=== PATIENT | female | born 1940 | race Caucasian/White ===

== ENCOUNTER 2016-11-13 19:20 | Observation (INO) | payer MEDICARE, OTHER ==
[~2016-11-13] VITALS: Ht 165.1 cm; Wt 65.0 kg
[~2016-11-13 19:20] MED LIST: AMBI10TA PO; CALC500T19 PO; CHLO500T13 PO; FIORINAL2 PO; METHY500 PO; MEVA40TA PO; SALS500T PO; TAB-TAB PO
[2016-11-13 19:25] VITALS: BP 147/67; PULSE 80; RESP 16; TEMP 98.2; O2SAT 94
--- NOTE | 2016-11-13 19:57 | PD ---
HPI Chief Complaint: Fall Time Seen by Provider: 19:52 Travel History International Travel<30 days: No Contact w/Intl Traveler<30days: No Traveled to known affect area: No History of Present Illness HPI Patient is 75-year-old female presenting to emergency Department via EMS for evaluation of right ankle pain. Patient tripped and fell down 5-6 steps in her home. She reports laying there for approximately 15 minutes to make sure that "everything was working". She managed to climb the stairs herself but has been unable to bear weight on her right ankle. She reports a chronic history of back pain related to scoliosis and arthritis however it is exacerbated since the accident. She also reports right knee pain. She denies any head injury or loss of consciousness. She states her pain is an 8 out of 10. She states that she's had left knee pain for the last year which is cause her to be mostly bedridden, she is finally been able to get around as of recently and then fell. When she fell she was kicking a bag of laundry down the stairs stating she misjudged the steps and fell. PFSH Past Medical History Arthritis: Yes High Cholesterol: Yes COPD: Yes Hypertension: Yes Immunizations Current: Yes Tetanus Vaccination: Never Vaccinated Influenza Vaccination: No Menopausal: Yes Past Surgical History Gynecologic Surgery: Yes (bilateral oophorectomy) Tonsillectomy: Yes Other Surgery: Yes (BILATERAL BREAST BIOPSY) Social History Alcohol Use: Yes (OCCASIONALLY) Tobacco Use: Yes (1PPD ) Substance Use: No Allergies-Medications (Allergen,Severity, Reaction): Coded Allergies: Codeine (Verified Allergy, Intermediate, Nausea/Vomiting, 11/13/16) Reported Meds & Prescriptions Reported Meds & Active Scripts Active Reported Lovastatin 40 Mg Tab 40 Mg PO DAILY Fluoxetine (Fluoxetine HCl) 20 Mg Cap 20 Mg PO DAILY Ambien (Zolpidem Tartrate) 10 Mg Tab 10 Mg PO HS PRN Clonazepam 0.5 Mg Tab 0.5 Mg PO QID Methyldopa 500 Mg Tab 500 Mg PO BID Review of Systems Except as stated in HPI: all other systems reviewed are Neg General / Constitutional: No: Fever, Chills Eyes: No: Visual changes HENT: No: Headaches, Neck Stiffness, Neck Pain Cardiovascular: No: Chest Pain or Discomfort, Tachycardia, Dyspnea on exertion Respiratory: No: Shortness of Breath, Wheezing Gastrointestinal: No: Nausea, Vomiting, Abdominal Pain Genitourinary: No: Dysuria Musculoskeletal: Positive: Myalgias, Arthralgias, Edema, Pain Skin: Positive Change in Pigmentation Neurologic: No: Dizziness, Focal Abnormalities, Change in Mentation Physical Exam Narrative GENERAL: Well-developed, well-nourished, alert elderly female. Resting comfortably in no acute distress. SKIN: Warm and dry. HEAD: Atraumatic. Normocephalic. EYES: Pupils equal and round. No scleral icterus. No injection or drainage. ENT: No nasal bleeding or discharge. Mucous membranes pink and moist. NECK: Trachea midline. No JVD. Full range of motion with flexion, extension, rotation. CARDIOVASCULAR: Regular rate and rhythm. No murmur appreciated. RESPIRATORY: No accessory muscle use. Clear to auscultation. Breath sounds equal bilaterally. GASTROINTESTINAL: Abdomen soft, non-tender, nondistended. Hepatic and splenic margins not palpable. The bowel sounds, no rebound, no guarding. MUSCULOSKELETAL: No clubbing. No cyanosis. Edema to the right ankle on the lateral aspect, and on the lateral aspect of the right lower leg with associated ecchymosis. Positive pedal pulses, brisk less than 3 second capillary refill. NEUROLOGICAL: Awake and alert. No obvious cranial nerve deficits. Motor grossly within normal limits. Normal speech. PSYCHIATRIC: Appropriate mood and affect; insight and judgment normal. Data Data Last Documented VS Vital Signs Date Time Temp Pulse Resp B/P Pulse Ox O2 Delivery O2 Flow Rate FiO2 11/13/16 19:59 16 95 Nasal Cannula 2 11/13/16 19:25 98.2 80 147/[address] Brain W/O Iv Contrast(Rout) (11/13/16 ) Ct Cerv Spine W/O Contrast (11/13/16 ) Chest, Pa & Lat (11/13/16 ) Ankle, Complete ([id number]) (11/13/16 ) Knee, Complete (4vws) (11/13/16 ) Spine, Lumbar - Ltd (Ap & Lat) (11/13/16 ) Complete Blood Count With Diff (11/13/16 19:46) Comprehensive Metabolic Panel (11/13/16 19:46) Act Partial Throm Time (Ptt) (11/13/16 19:46) Prothrombin Time / Inr (Pt) (11/13/16 19:46) Iv Access Insert/Monitor (11/13/16 19:46) Oximetry (11/13/16 19:46) Ecg Monitoring (11/13/16 19:46) Ondansetron Inj (Zofran Inj) (11/13/16 20:00) Morphine Inj (Morphine Inj) (11/13/16 20:15) Knee, Complete (4vws) (11/13/16 ) Splinting (11/13/16 ) MDM Medical Decision Making Medical Screen Exam Complete: Yes Emergency Medical Condition: Yes Interpretation(s) Vital Signs Date Time Temp Pulse Resp B/P Pulse Ox O2 Delivery O2 Flow Rate FiO2 11/13/16 19:59 16 95 Nasal Cannula 2 11/13/16 19:25 98.2 80 16 147/67 94 Last Impressions Lumbar Spine X-Ray 11/13/16 0000 Signed Impressions: Service Date/Time: Sunday, November 13, 2016 20:20 - CONCLUSION: 1. Mild superior endplate depression of L4 of uncertain age. No spondylolisthesis. Steve Aguilar MD Head CT 11/13/16 0000 Signed Impressions: Service Date/Time: Sunday, November 13, 2016 20:36 - CONCLUSION: 1. White matter ischemic changes. Cortical volume loss. No acute intracranial abnormalities. Steve Aguilar MD Chest X-Ray 11/13/16 0000 Signed Impressions: Service Date/Time: Sunday, November 13, 2016 20:08 - CONCLUSION: 1. No acute findings. Steve Aguilar MD Cervical Spine CT 11/13/16 0000 Signed Impressions: Service Date/Time: Sunday, November 13, 2016 20:36 - CONCLUSION: 1. No acute findings. Moderate degenerative change. Osteopenia. Steve Aguilar MD Ankle X-Ray 11/13/16 0000 Signed Impressions: Service Date/Time: Sunday, November 13, 2016 19:59 - CONCLUSION: 1. Mildly displaced fracture of the lateral malleolus with soft tissue swelling. Steve Aguilar MD Vital Signs Date Time Temp Pulse Resp B/P Pulse Ox O2 Delivery O2 Flow Rate FiO2 11/13/16 19:25 98.2 80 16 147/67 94 Differential Diagnosis Sprain versus strain versus fracture versus dislocation versus contusion versus hemorrhage versus other Narrative Course Patient is a 75-year-old female presenting to emergency Department for evaluation of right ankle pain after falling down 5-6 steps in her home. Patient is neurologically intact. Labs and imaging ordered and pending. IV access initiated, patient placed on telemetry monitoring and continuous pulse oximetry. CT scan of the head is negative for acute abnormality CT scan of the cervical spine was negative for fracture X-ray of the lumbar spine shows mild superior endplate depression at L4 of an uncertain age. Chest x-ray is negative X-ray of the right ankle shows a lateral malleolus fracture soft tissue swelling. Patient will be placed in Luna splint. Patient's left knee is weak secondary to a possible tear per her report, it injured for approximately one year, and now her right ankle has a fracture. Patient would be best placed under observation for possible placement in short- term rehabilitation. Discussed with patient, she was originally requesting home health, she has agreed to stay for physical therapy and possible short- term rehabilitation placement. Labs are still pending. Dr. Chairez except admission under observation. Diagnosis Primary Impression: Closed right ankle fracture Qualified Code: S82.891A - Closed right ankle fracture, initial encounter Additional Impressions: Fall (on) (from) other stairs and steps, initial encounter Impaired functional mobility, balance, gait, and endurance Carol Coleman Nov 13, 2016 19:57
[2016-11-13 19:59] VITALS: RESP 16; O2SAT 95
[2016-11-13] MEDS ORDERED: ONDANSETRON HCL 4 MG/2 ML VIAL IV PUSH ONE (20:00)
[2016-11-13] MEDS ORDERED: METH500T PO (20:03)
[2016-11-13] MEDS ORDERED: LOVA40TA PO (20:03)
[2016-11-13] MEDS ORDERED: FLUO20CA4 PO (20:03)
[2016-11-13] MEDS ORDERED: AMBI10TA PO (20:03)
[2016-11-13] MEDS ORDERED: CLON0.5T PO (20:03)
[2016-11-13] MEDS ORDERED: MORPHINE SULFATE 4 MG/ML INJ IV PUSH ONE (20:15)
--- NOTE | 2016-11-13 20:46 | RADRPT ---
EXAM DATE/TIME: 11/13/2016 20:36 [facility] COMPARISON: No previous studies available for comparison. INDICATIONS : Trauma; fall. RADIATION DOSE: 32.66 CTDIvol (mGy) MEDICAL HISTORY : Hypertension. Chronic obstructive pulmonary disease. SURGICAL HISTORY : Tubal ligation. Tonsillectomy. ENCOUNTER: Initial ACUITY: 1 day PAIN SCALE: 2/10 LOCATION: cranial TECHNIQUE: Multiple contiguous axial images were obtained of the head. Using automated exposure control and adj ustment of the mA and/or kV according to patient size, radiation dose was kept as low as reasonably a chievable to obtain optimal diagnostic quality images. FINDINGS: CEREBRUM: The ventricles are normal for age. No evidence of midline shift, mass lesion, hemorrhage or acute in farction. No extra-axial fluid collections are seen. POSTERIOR FOSSA: The cerebellum and brainstem are intact. The 4th ventricle is midline. The cerebellopontine angle i s unremarkable. EXTRACRANIAL: The visualized portion of the orbits is intact. SKULL: The calvaria is intact. No evidence of skull fracture. CONCLUSION: 1. White matter ischemic changes. Cortical volume loss. No acute intracranial abnormalities. Steve Aguilar MD on November 13, 2016 at 20:43 Board Certified Radiologist. This report was verified electronically.
--- NOTE | 2016-11-13 20:47 | RADRPT ---
EXAM DATE/TIME: 11/13/2016 19:59 [facility] COMPARISON: No previous studies available for comparison. INDICATIONS : Right ankle pain after fall. MEDICAL HISTORY : None. SURGICAL HISTORY : None. ENCOUNTER: Initial ACUITY: 1 day PAIN SCORE: 8/10 LOCATION: Right ankle. FINDINGS: Three view exam was performed of the right ankle. There is a minimally displaced fracture lateral ma lleolus. Overlying soft tissue swelling. No dislocation. CONCLUSION: 1. Mildly displaced fracture of the lateral malleolus with soft tissue swelling. Steve Aguilar MD on November 13, 2016 at 20:45 Board Certified Radiologist. This report was verified electronically.
--- NOTE | 2016-11-13 20:48 | RADRPT ---
EXAM DATE/TIME: 11/13/2016 20:08 [facility] COMPARISON: No previous studies available for comparison. INDICATIONS : Chest and back pain after fall today. MEDICAL HISTORY : Hypertension. Hypercholesterolemia. Chronic obstructive pulmonary disease. Smoker. SURGICAL HISTORY : None. ENCOUNTER: Initial ACUITY: 1 day PAIN SCORE: 5/10 LOCATION: Bilateral chest FINDINGS: PA and lateral views of the chest demonstrate the lungs to be symmetrically aerated without evidence of mass, infiltrate or effusion. The cardiomediastinal contours are unremarkable. Osseous structure s are intact. CONCLUSION: 1. No acute findings. Steve Aguilar MD on November 13, 2016 at 20:46 Board Certified Radiologist. This report was verified electronically.
--- NOTE | 2016-11-13 20:50 | RADRPT ---
EXAM DATE/TIME: 11/13/2016 20:20 [facility] COMPARISON: No previous studies available for comparison. INDICATIONS : Lower back pain after fall. MEDICAL HISTORY : None. SURGICAL HISTORY : None. ENCOUNTER: Initial ACUITY: 1 day PAIN SCORE: 8/10 LOCATION: Bilateral lower back. FINDINGS: There is a mild superior endplate depression at L4 Limited age. No evidence for retropulsion. No subl uxation. Bones are osteopenic. Moderate degenerative disc disease and facet arthropathy. CONCLUSION: 1. Mild superior endplate depression of L4 of uncertain age. No spondylolisthesis. Steve Aguilar MD on November 13, 2016 at 20:47 Board Certified Radiologist. This report was verified electronically.
--- NOTE | 2016-11-13 20:56 | RADRPT ---
EXAM DATE/TIME: 11/13/2016 20:36 [facility] COMPARISON: No previous studies available for comparison. INDICATIONS : Trauma; fall. RADIATION DOSE: 21.06 CTDIvol (mGy) MEDICAL HISTORY : Hypertension. Chronic obstructive pulmonary disease. SURGICAL HISTORY : Tonsillectomy. Tubal ligation. ENCOUNTER: Initial ACUITY: 1 day PAIN SCALE: 2/10 LOCATION: neck TECHNIQUE: Volumetric scanning of the cervical spine was performed. Multiplanar reconstructions in the sagittal, coronal and oblique axial planes were performed. Using automated exposure control and adjustment o f the mA and/or kV according to patient size, radiation dose was kept as low as reasonably achievable to obtain optimal diagnostic quality images. FINDINGS: There is moderate degenerative disc disease in the cervical spine. No fracture or spondylolisthesis. No prevertebral soft tissue swelling. The bones are osteopenic. CONCLUSION: 1. No acute findings. Moderate degenerative change. Osteopenia. Steve Aguilar MD on November 13, 2016 at 20:51 Board Certified Radiologist. This report was verified electronically.
--- NOTE | 2016-11-13 21:01 | RADRPT ---
EXAM DATE/TIME: 11/13/2016 20:04 [facility] COMPARISON: No previous studies available for comparison. INDICATIONS : Right knee pain after fall. MEDICAL HISTORY : None. SURGICAL HISTORY : None. ENCOUNTER: Initial ACUITY: 1 day PAIN SCORE: 5/10 LOCATION: Right knee. FINDINGS: Four view examination of the right knee demonstrates no evidence of fracture or dislocation. Mild ost eopenia. Mild osteoarthritis at the knee joint. CONCLUSION: 1. Mild osteoarthritis. Osteopenia. No acute bony abnormality. Steve Aguilar MD on November 13, 2016 at 20:58 Board Certified Radiologist. This report was verified electronically.
--- NOTE | 2016-11-13 21:02 | RADRPT ---
EXAM DATE/TIME: 11/13/2016 20:04 [facility] COMPARISON: No previous studies available for comparison. INDICATIONS : Left knee pain after fall. MEDICAL HISTORY : None. SURGICAL HISTORY : None. ENCOUNTER: Initial ACUITY: 1 day PAIN SCORE: 5/10 LOCATION: Left knee. FINDINGS: Four view examination of the left knee demonstrates no evidence of fracture or dislocation. Bone mine ralization is decreased. Moderate osteoarthritis at the knee joint. CONCLUSION: 1. Moderate osteoarthritis at the left knee. No acute bony abnormalities. Steve Aguilar MD on November 13, 2016 at 20:59 Board Certified Radiologist. This report was verified electronically.
[2016-11-13] MEDS ORDERED: SODIUM CHLORIDE 0.9% FLUSH 5 ML FLUSH FLUSH PRN (21:45)
[2016-11-13] MEDS ORDERED: ONDANSETRON HCL 4 MG/2 ML VIAL IVP PRN (21:45)
[2016-11-13] MEDS ORDERED: NALOXONE HCL 0.4 MG/ML AMP IV PRN (21:45)
[2016-11-13] MEDS ORDERED: MORPHINE SULFATE 4 MG/ML INJ IV PUSH PRN (22:00)
[2016-11-13 22:22] LABS: BASOPHIL # 0.1 TH/MM3 (0-0.2); BASOPHIL % 0.3 % (0.0-2.0); EOSINOPHIL # 0.1 TH/MM3 (0-0.4); EOSINOPHIL % 0.7 % (0.0-4.0); HEMATOCRIT 44.8 % (35.0-46.0); HEMO FLAGS DIFF FINAL; LYMPH % 7.4 % (9.0-44.0); LYMPHOCYTE # 1.3 TH/MM3 (1.0-4.8); MEAN CELL VOLUME 91.5 FL (80.0-100.0); MEAN CORPUSCULAR HGB CONC 33.9 % (32.0-36.0); MONO % 9.1 % (0.0-8.0); NEUT % 82.5 % (16.0-70.0); PLATELET COUNT 237 TH/MM3 (150-450); RED BLOOD COUNT 4.89 MIL/MM3 (4.00-5.30); RED CELL DISTRIBUTION WIDTH 12.6 % (11.6-17.2); WHITE BLOOD COUNT 16.9 TH/MM3 (4.0-11.0)
[2016-11-13 22:34] LABS: APTT (PATIENT) 26.6 SEC (24.3-30.1); INTERNATIONAL NORMALIZED RATIO 0.9 RATIO; PROTHROMBIN TIME - PATIENT 10.2 SEC (9.8-11.6)
[2016-11-13 22:39] LABS: ANION GAP 6 MEQ/L (5-15); AST (GOT) 19 U/L (15-37); BICARBONATE 29.2 MEQ/L (21.0-32.0); BLOOD UREA NITROGEN 13 MG/DL (7-18); CHLORIDE 102 MEQ/L (98-107); GLOMERULAR FILTRATION RATE 66 ML/MIN (>89); POTASSIUM 3.4 MEQ/L (3.5-5.1); SODIUM (NA) 137 MEQ/L (136-145)
[2016-11-13 22:43] LABS: ALKALINE PHOSPHATASE 90 U/L (45-117); ALT (GPT) 22 U/L (10-53); TOTAL BILIRUBIN ADULT 0.4 MG/DL (0.2-1.0)
[2016-11-13 23:12] VITALS: BP 139/63; PULSE 83; RESP 20; TEMP 98; O2SAT 95
[2016-11-13] MEDS ORDERED: ASPIRIN 325 MG/CAFFEINE 40 MG/BUTALBITAL 50 MG CAP PO ONE (23:45)
--- NOTE | 2016-11-13 23:57 | HHI.HP ---
[facility] Non-Staff Admission Diagnosis right ankle fracture, fall, gait impairment Diagnoses: Chief Complaint: Fell down Travel History International Travel<30 Days: No Contact w/Intl Traveler <30 Da: No Traveled to Known Affected Are: No History of Present Illness History from patient, your physician communication, and review of medical records. Patient reported that she was trying to do her laundry and coming down steps of stairs in her home and somehow lost balance and fell onto her right side. She stated that her left knee is that that knee for which she has been seeing Dr. Muñoz and pretty much have been mostly bedbound or homebound because of this left knee. She states that she is not able to tolerate any opiate medications and therefore she is mainly doing physical therapy at home by herself without much pain medications. She is quite upset that she now injured her right ankle as well. She however denies any premonitory symptoms prior to this fall such as chest pain/palpitations/shortness of breath/focal weakness. Patient denies hitting her head. Denies being on blood thinners at home. Denies syncope. Patient also denies any recent fever/nausea/vomiting/diarrhea/urinary burning or pain on urination. Denies any hematemesis/hematochezia/melena/hematuria. Review of Systems 12 point review of systems was obtained and is negative apart from what is mentioned in HPI Past Family Social History Past Medical History Hypertension Prior history of tobacco abusequit 3 years ago. Chronic back painsecondary to fracture at the spine per patient. Chronic left knee pain for past one yearpatient doesn't know the exact etiology. However states physical therapy at home was improving the pain. Past Surgical History Bilateral breast biopsy Bilateral oophorectomy Reported Medications Patient's medications listed in EMRreviewed. Patient stated that she did go through all her medications with the nurse. Allergies: Coded Allergies: Codeine (Verified Allergy, Intermediate, Nausea/Vomiting, 11/13/16) Family History Reports for further had type 1 diabetes and at the age of [age] years old. Her mother had breast cancer and from it. Social History Denies smoking/alcohol abuse/drug abuse. Used to smoke cigarettes and quit about 3 years ago. Lives by herself. Still driving. Physical Exam Vital Signs Vital Signs Date Time Temp Pulse Resp B/P Pulse Ox O2 Delivery O2 Flow Rate FiO2 11/13/16 23:12 98.0 83 20 139/63 95 11/13/16 19:59 16 95 Nasal Cannula 2 11/13/16 19:25 98.2 80 16 147/67 94 Physical Exam GENERAL: This is a well-nourished, well-developed patient, in no apparent distress. SKIN: No rashes, ecchymoses or lesions. Cool and dry. HEAD: Atraumatic. Normocephalic. No temporal or scalp tenderness. EYES: . No scleral icterus. No injection or drainage. ENT: Nose without bleeding, purulent drainage or septal hematoma. Airway patent. NECK: Trachea midline. No JVD Supple, nontender, no meningeal signs. CARDIOVASCULAR: Regular rate and rhythm without murmurs, gallops, or rubs. RESPIRATORY: Clear to auscultation. Breath sounds equal bilaterally. No wheezes , rales, or rhonchi. GASTROINTESTINAL: Abdomen soft, non-tender, nondistended.. No guarding. MUSCULOSKELETAL: Extremities without clubbing, cyanosis, or edema. Right lower extremity in cast. Able to wiggle her toes. Denies numbness or loss of sensation. NEUROLOGICAL: Awake and alert. Normal speech. Laboratory Laboratory Tests Test 11/13/16 21:45 White Blood Count 16.9 Red Blood Count 4.89 Hemoglobin 15.2 Hematocrit 44.8 Mean Corpuscular Volume 91.5 Mean Corpuscular Hemoglobin 31.0 Mean Corpuscular Hemoglobin 33.9 Concent Red Cell Distribution Width 12.6 Platelet Count 237 Mean Platelet Volume 7.6 Neutrophils (%) (Auto) 82.5 Lymphocytes (%) (Auto) 7.4 Monocytes (%) (Auto) 9.1 Eosinophils (%) (Auto) 0.7 Basophils (%) (Auto) 0.3 Neutrophils # (Auto) 14.0 Lymphocytes # (Auto) 1.3 Monocytes # (Auto) 1.5 Eosinophils # (Auto) 0.1 Basophils # (Auto) 0.1 CBC Comment DIFF FINAL Differential Comment Prothrombin Time 10.2 Prothromb Time International 0.9 Ratio Activated Partial 26.6 Thromboplast Time Sodium Level 137 Potassium Level 3.4 Chloride Level 102 Carbon Dioxide Level 29.2 Anion Gap 6 Blood Urea Nitrogen 13 Creatinine 0.84 Estimat Glomerular Filtration 66 Rate Random Glucose 103 Calcium Level 9.0 Total Bilirubin 0.4 Aspartate Amino Transf 19 (AST/SGOT) Alanine Aminotransferase 22 (ALT/SGPT) Alkaline Phosphatase 90 Total Protein 7.0 Albumin 3.6 Result Diagram: 11/13/16214411/13/162144 Imaging Last 48 hours Impressions Lumbar Spine X-Ray 11/13/16 0000 Signed Impressions: Service Date/Time: Sunday, November 13, 2016 20:20 - CONCLUSION: 1. Mild superior endplate depression of L4 of uncertain age. No spondylolisthesis. Steve Aguilar MD Knee X-Ray 11/13/16 0000 Signed Impressions: Service Date/Time: Sunday, November 13, 2016 20:04 - CONCLUSION: 1. Moderate osteoarthritis at the left knee. No acute bony abnormalities. Steve Aguilar MD Knee X-Ray 11/13/16 0000 Signed Impressions: Service Date/Time: Sunday, November 13, 2016 20:04 - CONCLUSION: 1. Mild osteoarthritis. Osteopenia. No acute bony abnormality. Steve Aguilar MD Head CT 11/13/16 0000 Signed Impressions: Service Date/Time: Sunday, November 13, 2016 20:36 - CONCLUSION: 1. White matter ischemic changes. Cortical volume loss. No acute intracranial abnormalities. Steve Aguilar MD Chest X-Ray 11/13/16 0000 Signed Impressions: Service Date/Time: Sunday, November 13, 2016 20:08 - CONCLUSION: 1. No acute findings. Steve Aguilar MD Cervical Spine CT 11/13/16 0000 Signed Impressions: Service Date/Time: Sunday, November 13, 2016 20:36 - CONCLUSION: 1. No acute findings. Moderate degenerative change. Osteopenia. Steve Aguilar MD Ankle X-Ray 11/13/16 0000 Signed Impressions: Service Date/Time: Sunday, November 13, 2016 19:59 - CONCLUSION: 1. Mildly displaced fracture of the lateral malleolus with soft tissue swelling. Steve Aguilar MD Assessment and Plan Problem List: (1) Fall (on) (from) other stairs and steps, initial encounter ICD Code: W10.8XXA Status: Acute (2) Closed right ankle fracture ICD Code: S82.891A Status: Acute (3) Impaired functional mobility, balance, gait, and endurance ICD Code: Z74.09 Status: Acute Assessment and Plan Impression: Status post fall Right lateral malleolus mildly displaced fracture Hypertension Prior history of tobacco abusequit 3 years ago. Chronic back painsecondary to fracture at the spine per patient. Chronic left knee pain for past one yearpatient doesn't know the exact etiology. However states physical therapy at home was improving the pain. Plan: Physical therapy consult. Orthopedics consult. Pain control. Patient prefers taking Fiorinal for this. She states that she gets adverse reactions to narcotics and would rather stick with what she knows. She is also requesting prescription for Purinol at discharge. I have told her that we would prescribe her and that something contraindication occur during her hospitalization stay with new double up months. Otherwise she may resume. Resume rest of her home medications. DVT prophylaxiswith heparin. GI prophylaxis on pantoprazole. Discussed Condition With patient, ER Problem Qualifiers (1) Closed right ankle fracture: Qualified Code: S82.891A - Closed right ankle fracture, initial encounter Lucero Chairez MD Nov 13, 2016 23:57
[2016-11-14] MEDS ORDERED: ZOLPIDEM TARTRATE 10 MG TAB PO PRN (00:45)
[2016-11-14] MEDS ORDERED: PRAVASTATIN SOD 40 MG TAB PO ONE (00:45)
[2016-11-14] MEDS ORDERED: METHYLDOPA 500 MG TAB PO ONE (00:45)
[2016-11-14 03:49] VITALS: BP 109/67; PULSE 85; RESP 20; TEMP 97.6; O2SAT 95
[2016-11-14] MEDS ORDERED: ASPIRIN 325 MG/CAFFEINE 40 MG/BUTALBITAL 50 MG CAP PO PRN (06:45)
[2016-11-14 07:56] VITALS: BP 128/56; PULSE 80; RESP 20; TEMP 97.9; O2SAT 92
[2016-11-14] MEDS ORDERED: HEPARIN SODIUM - SQ 10,000 UNITS/ML VIAL SQ SCH (09:00)
[2016-11-14] MEDS ORDERED: clonazePAM 0.5 MG TAB PO SCH (09:00)
[2016-11-14] MEDS ORDERED: METHYLDOPA 500 MG TAB PO SCH (09:00)
[2016-11-14] MEDS ORDERED: PRAVASTATIN SOD 40 MG TAB PO SCH (09:00)
[2016-11-14] MEDS ORDERED: FLUoxetine HCL 20 MG CAP PO SCH (09:00)
[2016-11-14] MEDS ORDERED: SODIUM CHLORIDE 0.9% FLUSH 5 ML FLUSH FLUSH SCH (09:00)
[2016-11-14] MEDS ORDERED: PANTOPRAZOLE SOD 40 MG DELAYED RELEASE TAB PO SCH (09:00)
--- NOTE | 2016-11-14 09:26 | HHI.PR ---
Subjective Remarks Follow up for right ankle fracture, lumbar compression fracture. The patient adamantly wants to go home today. Pain is fairly well controlled with Fiorinal. She is requesting if she can get rehab at home. She lives by herself however she has arranged for a friend to stay with her 24hrs/day until Tuesday. She would like a wheelchair and bedside commode arranged. Discussed with case management. Discussed with Dr. Shields, ok to discharge, outpatient f/up, continue splint and NWB to RLE. Objective Vitals Vital Signs Date Time Temp Pulse Resp B/P Pulse Ox O2 Delivery O2 Flow Rate FiO2 11/14/16 07:56 97.9 80 20 128/56 92 11/14/16 03:49 97.6 85 20 109/67 95 11/13/16 23:12 98.0 83 20 139/63 95 11/13/16 19:59 16 95 Nasal Cannula 2 11/13/16 19:25 98.2 80 16 147/67 94 Result Diagram: 11/13/16214411/13/162144 Imaging Last Impressions Lumbar Spine X-Ray 11/13/16 0000 Signed Impressions: Service Date/Time: Sunday, November 13, 2016 20:20 - CONCLUSION: 1. Mild superior endplate depression of L4 of uncertain age. No spondylolisthesis. Steve Aguilar MD Knee X-Ray 11/13/16 0000 Signed Impressions: Service Date/Time: Sunday, November 13, 2016 20:04 - CONCLUSION: 1. Moderate osteoarthritis at the left knee. No acute bony abnormalities. Steve Aguilar MD Head CT 11/13/16 0000 Signed Impressions: Service Date/Time: Sunday, November 13, 2016 20:36 - CONCLUSION: 1. White matter ischemic changes. Cortical volume loss. No acute intracranial abnormalities. Steve Aguilar MD Chest X-Ray 11/13/16 0000 Signed Impressions: Service Date/Time: Sunday, November 13, 2016 20:08 - CONCLUSION: 1. No acute findings. Steve Aguilar MD Cervical Spine CT 11/13/16 0000 Signed Impressions: Service Date/Time: Sunday, November 13, 2016 20:36 - CONCLUSION: 1. No acute findings. Moderate degenerative change. Osteopenia. Steve Aguilar MD Ankle X-Ray 11/13/16 0000 Signed Impressions: Service Date/Time: Sunday, November 13, 2016 19:59 - CONCLUSION: 1. Mildly displaced fracture of the lateral malleolus with soft tissue swelling. Steve Aguilar MD Objective Remarks GENERAL: Well-nourished, well-developed elderly female patient in NAD. SKIN: Warm and dry. No rash. HEAD: Normocephalic. Atraumatic. EYES: Pupils equal and round. No scleral icterus. No injection or drainage. ENT: No nasal bleeding or discharge. Mucous membranes pink and moist. NECK: Supple. Trachea midline. CARDIOVASCULAR: Regular rate and rhythm. S1, S2 noted. No murmur appreciated. RESPIRATORY: No accessory muscle use. Clear to auscultation. Breath sounds equal bilaterally. GASTROINTESTINAL: Abdomen soft, non-tender, nondistended. Normoactive bowel sounds x4. MUSCULOSKELETAL: No obvious deformities. RLE in splint. NEUROLOGICAL: Awake and alert. No obvious cranial nerve deficits. Motor grossly within normal limits. Normal speech. PSYCHIATRIC: Appropriate mood and affect; insight and judgment normal. Medications and IVs Current Medications Medications (Trade) Dose Ordered Sig/Ty Route Start Time Stop Time Status Last Admin (NS Flush) 2 ml UNSCH PRN FLUSH 11/13/16 21:45 (NS Flush) 2 ml BID FLUSH 11/14/16 09:00 (Zofran Inj) 4 mg Q6H PRN IVP 11/13/16 21:45 (Heparin Inj) 5,000 units Q8H SQ 11/14/16 09:00 (Narcan Inj) 0.4 mg UNSCH PRN IV 11/13/16 21:45 (Morphine Inj) 2 mg Q3H PRN IV PUSH 11/13/16 22:00 (KlonoPIN) 0.5 mg QID PO 11/14/16 09:00 11/14/16 10:04 (PROzac) 20 mg DAILY PO 11/14/16 09:00 11/14/16 10:04 (Pravachol) 40 mg DAILY PO 11/14/16 09:00 11/14/16 10:05 (Aldomet) 500 mg BID PO 11/14/16 09:00 (Ambien) 10 mg HS PRN PO 11/14/16 00:45 11/14/16 01:40 (Fiorinal 325-40-50) 1 cap Q6HR PRN PO 11/14/16 06:45 (Protonix) 40 mg DAILY PO 11/14/16 09:00 11/14/16 10:04 A/P Problem List: (1) Fall (on) (from) other stairs and steps, initial encounter ICD Code: W10.8XXA Status: Acute (2) Closed right ankle fracture ICD Code: S82.891A Status: Acute (3) Impaired functional mobility, balance, gait, and endurance ICD Code: Z74.09 Status: Acute Assessment and Plan 75-year-old female with history of chronic left knee pain, chronic back pain secondary to old fracture, HTN, prior tobacco use, presents with right ankle pain after a fall. Right Lateral Malleolus Fracture, mildly displaced: s/p mechanical fall. Right ankle xray images reviewed by me. Consulted orthopedics, Discussed with Dr. Shields, ok to discharge, outpatient f/up, continue splint and NWB to RLE. She adamantly wants to go home today. Pain is fairly well controlled with Fiorinal, needs refill. Will arrange HHC, wheelchair, bedside commode - discussed with CM. She lives by herself however she has arranged for a friend to stay with her 24hrs/day until Tuesday. L4 Compression Fracture: Lumbar spine xray with mild superior endplate depression of L4 of uncertain age. Patient aware of lumbar spine fracture in the past. No worsening back pain. HHC PT at discharge. Mechanical Fall: down 4 steps, fractures as above. Other imaging reviewed including left knee xray which showed moderate OA, no acute abnormalities; Head CT with white matter ischemic changes, no acute findings; CXR with no acute findings; C-spine CT with no acute findings. Patient to receive HHC PT upon discharge. Chronic medical conditions include HTN/HLD/depression - continue patient's home medications as appropriate. Written by Alina Almonte, acting as scribe for Dr. Weir on 11/14/16 at 09:26. The documentation accurately reflects the work performed [id number] by me on at 09:26 Discharge Planning Discharge patient to home with C PT/Nursing/Aide Condition on discharge: Improved Heart Healthy Diet as tolerated Ad Yulia activity, NWB to RLE Rx written: Fiorinal Follow-up with primary care physician and orthopedics Dr. Shields DME: bedside commode, wheelchair Problem Qualifiers (1) Closed right ankle fracture: Qualified Code: S82.891A - Closed right ankle fracture, initial encounter Alina Almonte PA-C Nov 14, 2016 09:26 Tessa Weir DO Nov 14, 2016 23:02
--- NOTE | 2016-11-14 09:41 | HHI.DCPOC ---
Discharge Care Plan Diagnosis: (1) Fall (on) (from) other stairs and steps, initial encounter (2) Impaired functional mobility, balance, gait, and endurance (3) Closed right ankle fracture (4) Closed compression fracture of L4 lumbar vertebra (5) Left knee pain Goals to Promote Your Health * To prevent worsening of your condition and complications * To maintain your health at the optimal level Directions to Meet Your Goals Take your medications as prescribed Follow your dietary instruction Follow activity as directed Keep your appointments as scheduled Take your immunizations and boosters as scheduled If your symptoms worsen call your PCP, if no PCP go to Urgent Care Center or Emergency Room Smoking is Dangerous to Your Health. Avoid second hand smoke Call the 24-hour hour crisis hotline for domestic abuse at Alina Almonte PA-C Nov 14, 2016 09:41 Tessa Weir DO Nov 14, 2016 23:02
--- NOTE | 2016-11-14 09:43 | HHI.FF ---
Face to Face Verification Diagnosis: (1) Fall (on) (from) other stairs and steps, initial encounter (2) Impaired functional mobility, balance, gait, and endurance (3) Closed right ankle fracture (4) Closed compression fracture of L4 lumbar vertebra (5) Left knee pain Physical Therapy Order: Evaluate and Treat, Improve ambulation, Strength and gait training Home Health Nursing Order: Medical education Nursing assessment with vital signs Home Health Aide Order: To Assist In: Bathing and personal care, first beater and meal prep I have seen patient Marilyn Frazier on 11/14/16. My clinical findings support the need for the requested home health care services because: Deconditioned w/ increased weakness Limited ability to care for self High risk of falls I certify that my clinical findings support that this patient is homebound because: Unsteady gait/balance Unsafe to leave home unassisted Unable to use public transportation Alina Almonte PA-C Nov 14, 2016 09:43 Tessa Weir DO Nov 14, 2016 23:02
[2016-11-14] MEDS ORDERED: WHEEMIS3 (10:08)
[2016-11-14] MEDS ORDERED: BEDSIDE COMMODE1 MI1 (10:08)
[2016-11-14] MEDS ORDERED: FIORINAL2 PO (10:22)
== END 2016-11-14 14:03 | disposition home or self-care (01) ==
LOC: NEPA 19:20 → NEDA 21:43 → NEPGCP 22:58
PROVIDERS: ADMIT Hospitalist; ATTEND Hospitalist
DX: S82.61XA Displaced fracture of lateral malleolus of right fibula, initial encounter for closed fracture (principal); M48.56XA Collapsed vertebra, not elsewhere classified, lumbar region, initial encounter for fracture; R26.9 Unspecified abnormalities of gait and mobility; M41.9 Scoliosis, unspecified; M54.9 Dorsalgia, unspecified; G89.29 Other chronic pain; E78.00 Pure hypercholesterolemia, unspecified; I10 Essential (primary) hypertension; J44.9 Chronic obstructive pulmonary disease, unspecified; M19.90 Unspecified osteoarthritis, unspecified site; F32.9 Major depressive disorder, single episode, unspecified; Z72.0 Tobacco use; W10.9XXA Fall (on) (from) unspecified stairs and steps, initial encounter
CPT/HCPCS: 70450; 71020; 72100; 72125; 73564; 73610; 80053; 85025; 85610; 85730; 97163; 99285; G0378; G8987; G8988